=== PATIENT | male | born 1980 | race Caucasian/White ===

== ENCOUNTER 2018-09-03 02:53 | Emergency (ER) | payer SELFPAY ==
[~2018-09-03] VITALS: Ht 175.3 cm; Wt 83.0 kg
[2018-09-03 03:03] VITALS: BP 148/91
--- NOTE | 2018-09-03 03:05 | NUR ---
ASSUMED CARE OF PT AT THIS TIME. C/O RIGHT FOOT CELLULITIS X 3 DAYS. AAOX4 WITH EVEN AND STEADY GAIT; PATIENT STATES PAIN OF 2/10; VSS; PATIENT POSITIONED FOR COMFORT. ER MD MADE AWARE OF PT STATUS. WILL CONTINUE TO MONITOR.
[2018-09-03 03:15] VITALS: BP 148/91
--- NOTE | 2018-09-03 03:15 | NUR ---
Patient discharged with v/s stable. Written and verbal after care instructions given and explained. Patient alert, oriented and verbalized understanding of instructions. Ambulatory with steady gait. All questions addressed prior to discharge. ID band removed. Patient advised to follow up with PMD. Rx of BENADRYL, PREDNISONE, CLINDAMYCIN, AND MOTRIN given. Patient educated on indication of medication including possible reaction and side effects. Opportunity to ask questions provided and answered.
== END 2018-09-03 03:15 | disposition home or self-care (01) ==
LOC: MED 02:53
DX: T63.481A Toxic effect of venom of other arthropod, accidental (unintentional), initial encounter (principal); M25.571 Pain in right ankle and joints of right foot; Y92.89 Other specified places as the place of occurrence of the external cause
CPT/HCPCS: 99283

== ENCOUNTER 2019-11-15 04:52 | Emergency (ER) | payer SELFPAY ==
[~2019-11-15] VITALS: Ht 172.7 cm; Wt 77.1 kg
[2019-11-15 04:57] VITALS: BP 185/120
--- NOTE | 2019-11-15 04:57 | NUR ---
PT AMBULATED TO BED 11 WITH ASSISTANCE WITH A WALKER
--- NOTE | 2019-11-15 04:58 | NUR ---
Dr. Rios examining patient.
[2019-11-15] MEDS ORDERED: KETOROLAC 30 MG/ML VIAL IM ONE (05:05)
[2019-11-15] MEDS ORDERED: DIAZEPAM 5 MG TAB PO ONE (05:05)
--- NOTE | 2019-11-15 05:05 | NUR ---
39 YO PERSON C/O 08/08 THROBBING RIGHT LEG PAIN THAT HAS WORSENED OVER X 1 WEEK. PT STATES SHE DOES NOT EXPERIENCE PAIN WHILE LAYING STILL BUT HAS INTENSE PAIN WHILE BEARING WEIGHT OR MOVEMENT THAT RADIATES FROM HAMSTRING TO LOWER BACK. DENIES RECENT TRAUMA OR INJURY. NO DEFORMITIES OR DISCOLORATION NOTED. PT STATES SHE REQUIRES WC ASSISTANCE DUE TO PAIN. PMH-- DENIES RX-- NAPROSYN AND PREDNISONE NEEDED FOR PAIN
--- NOTE | 2019-11-15 05:24 | NUR ---
X-Ray at bedside.
--- NOTE | 2019-11-15 05:30 | NUR ---
MEDICATED WITH 30 MG IM TORADOL AND 5 MG PO VALIUM FOR 10/10 LEG PAIN. WILL REASSESS.
[2019-11-15] MEDS ORDERED: fentaNYL 0.05 MG/ML VIAL NS ONE (05:40)
--- NOTE | 2019-11-15 05:50 | NUR ---
REPORTS MINIMAL PAIN RELIEF; 06/08. DR. HOOKER AT BEDSIDE.
--- NOTE | 2019-11-15 05:55 | NUR ---
ADMINISTERED 100 MCG INTRANASAL FENTANYL FOR 8/10 LEG PAIN. WILL REASSESS.
[2019-11-15] MEDS ORDERED: TOMOMETER 1 DEV DEV MC ONE (06:11)
--- NOTE | 2019-11-15 06:12 | NUR ---
REPORTS PAIN RELIEF; 01/06. PT STATES SHE FEELS MUCH BETTER. SITS UP WITHOUT ASSISTANCE OR DIFFICULTY.
[2019-11-15 06:14] VITALS: BP 140/89
--- NOTE | 2019-11-15 06:14 | NUR ---
Patient discharged with v/s stable. Written and verbal after care instructions given and explained. Patient alert, oriented and verbalized understanding of instructions. Ambulatory with steady gait using walker. All questions addressed prior to discharge. ID band removed. Patient advised to follow up with PMD. Rx of [place] and Lidoderm patch given. Patient educated on indication of medication including possible reaction and side effects. Opportunity to ask questions provided and answered. Addendum: 11/15/19 at 0621 by [facility]END AND FAMILY MEMBER PRESENT. WILL BE DRIVING PT HOME.
== END 2019-11-15 06:14 | disposition home or self-care (01) ==
LOC: MED 04:52
DX: M54.41 Lumbago with sciatica, right side (principal); Z88.0 Allergy status to penicillin; Z88.8 Allergy status to other drugs, medicaments and biological substances
CPT/HCPCS: 73502; 96372; 99283; J1885; J3010; Q0092